=== PATIENT | male | born 1960 | race Hispanic/Latino ===

== ENCOUNTER 2017-06-01 12:02 | Emergency (ER) | payer SELFPAY ==
[2017-06-01 12:09] VITALS: BP 122/85; PULSE 89; RESP 18; TEMP 96.4; O2SAT 100
[2017-06-01] MEDS ORDERED: Lidocaine 1% 20 MG/2 ML PF AMP SC ONE (12:29)
[2017-06-01] MEDS ORDERED: Lidocaine 1% Inj (20ml) SC ONE (12:45)
[2017-06-01] MEDS ORDERED: Lidocaine 1% Inj (20ml) ONE (12:45)
--- NOTE | 2017-06-01 12:48 | ED PDOC ---
Upper Extremity Pain/Injury Time Seen by Provider: 06/01/17 12:05 Chief Complaint (Nursing): Upper Extremity Problem/Injury Chief Complaint (Provider): Right Hand Laceration History Per: Patient History/Exam Limitations: no limitations Onset/Duration Of Symptoms: Hrs (x1) Current Symptoms Are (Timing): Still Present Additional Complaint(s): Chace Mcfadden is a 57 year old male presenting to the ED for an evaluation for a laceration to his right hand occurring this morning at 11:15 AM. The patient states he cut his right hand with a piece of heavy glass. He denies pain or any other medical problems. Of note, the patient's tetanus is not up to date. PMD: None Provided Past Medical History Reviewed: Historical Data, Nursing Documentation, Vital Signs Vital Signs: Last Vital Signs Temp 96.4 F L 06/01/17 12:03 Pulse 89 06/01/17 12:03 Resp 18 06/01/17 12:03 BP 122/85 06/01/17 12:03 Pulse Ox 100 06/01/17 12:03 - Medical History PMH: No Chronic Diseases - Family History Family History: States: Unknown Family Hx - Social History Current smoker - smoking cessation education provided: No Ex-Smoker (has not smoked in the last 12 months): No Alcohol: None Drugs: Denies - Immunization History Hx Tetanus Toxoid Vaccination: No Hx Influenza Vaccination: No Hx Pneumococcal Vaccination: No - Allergies Allergies/Adverse Reactions: Allergies Allergy/AdvReac Type Severity Reaction Status Date / Time No Known Allergies Allergy Verified 06/01/17 12:03 Review of Systems ROS Statement: Except As Marked, All Systems Reviewed And Found Negative Musculoskeletal: Positive for: Hand Pain (right hand laceration; no right hand pain) Physical Exam - Reviewed Nursing Documentation Reviewed: Yes Vital Signs Reviewed: Yes - Physical Exam Appears: Positive for: Non-toxic, No Acute Distress Head Exam: Positive for: ATRAUMATIC, NORMOCEPHALIC Skin: Positive for: Normal Color, Warm, Dry Eye Exam: Positive for: Normal appearance Extremity: Positive for: Other (approximately 5.5 cm laceration extending from palmar aspect of right hand to hypothenar eminence; no active bleeding; no deep structural involvement appreciated) Neurologic/Psych: Positive for: Alert, Oriented (x3) - ECG O2 Sat by Pulse Oximetry: 100 (RA) Pulse Ox Interpretation: Normal Medical Decision Making Medical Decision Making: Time: 12:05 Impression: Right Hand Laceration Plan: * Adacel 0.5 ml IM * Lidocaine 1% (20 ml) SC * [RAD] Right Hand 3 Views * Suture repair * Reevaluation Right Hand Xray: FINDINGS: BONES: No acute fracture or suspicious lytic or blastic change identified. An old healed fracture of the 5th metacarpal bone is not excluded. A congenital deformity is appreciate the middle phalanx of the right small finger. JOINTS: Normal. No osteoarthritic changes. SOFT TISSUES: No definite retained radiodense foreign body identified. OTHER FINDINGS: None. IMPRESSION: No acute fracture dislocation identified. Old healed fracture of the 5th metacarpal bone is difficult to exclude. No definite retained radiodense foreign body identified. Patient advised to return to the ED or follow up with PMD/Urgent Care for suture removal in 10-12 days. Keep wound clean, dry, and covered. Scribe Attestation: Documented by Nicolle Auguste, acting as a scribe for Cortney Davis PA-C. Provider Scribe Attestation: All medical record entries made by the Scribe were at my direction and personally dictated by me. I have reviewed the chart and agree that the record accurately reflects my personal performance of the history, physical exam, medical decision making, and the department course for this patient. I have also personally directed, reviewed, and agree with the discharge instructions and disposition. Procedures - Laceration/Wound Repair Right Hand Wound Length (cm): 5.5 Irrigated w/ Saline (ccs): 250 Betadine Prep?: Yes Anesthesia: 1% Lidocaine Suture Size/Type: 4:0, proline Number of Sutures: 14 Wound Complexity: Simple (interrupted sutures applied to wound) Disposition - Clinical Impression Clinical Impression: Laceration - Patient ED Disposition Is Patient to be Admitted: No - Disposition [facility] Disposition: Routine/Home Disposition Time: 13:52 Condition: FAIR Additional Instructions: RETURN IN 10-12 DAYS TO ED/PMD/URGENT CARE FOR REMOVAL OF SUTURES. Instructions: Laceration (ED) Forms: [facility] (Togolese), [facility] ED School/Work Excuse
== END 2017-06-01 14:18 | disposition home or self-care (01) ==
LOC: H.ER 12:02
DX: S61.411A Laceration without foreign body of right hand, initial encounter (principal); W25.XXXA Contact with sharp glass, initial encounter; Y99.0 Civilian activity done for income or pay

== ENCOUNTER 2017-06-12 11:05 | Emergency (ER) | payer SELFPAY ==
[2017-06-12 11:27] VITALS: BP 124/83; PULSE 87; RESP 18; TEMP 98.4; O2SAT 97
[2017-06-12 11:29] VITALS: BMI 23.0
--- NOTE | 2017-06-12 12:03 | ED PDOC ---
HPI: Wound Care - HPI Time Seen by Provider: 06/12/17 11:22 Chief Complaint (Nursing): Suture/Staple Removal History Per: Patient Additional Complaint(s): Pt. had sutures placed on his L hand on 06/01/2017 and is now here for removal. Denies fever, pain, discharge. Past Medical History Reviewed: Historical Data, Nursing Documentation, Vital Signs Vital Signs: Last Vital Signs Temp 98.4 F 06/12/17 11:27 Pulse 87 06/12/17 11:27 Resp 18 06/12/17 11:27 BP 124/83 06/12/17 11:27 Pulse Ox 97 06/12/17 11:27 - Family History Family History: States: Unknown Family Hx - Immunization History Hx Tetanus Toxoid Vaccination: No Hx Influenza Vaccination: No Hx Pneumococcal Vaccination: No - Home Medications Home Medications: Ambulatory Orders Medication Instructions Recorded Cephalexin [cephalexin] 500 mg PO Q6 #28 cap 06/12/17 - Allergies Allergies/Adverse Reactions: Allergies Allergy/AdvReac Type Severity Reaction Status Date / Time No Known Allergies Allergy Verified 06/01/17 12:03 Review of Systems ROS Statement: Except As Marked, All Systems Reviewed And Found Negative Physical Exam - Physical Exam Appears: Positive for: Well, Non-toxic, No Acute Distress Extremity: Positive for: Other (L palmar hand with [address]; surrounding erythema noted but no discharge, swelling, or fluctuance; minimal dehisence noted to medial aspect of wound) - ECG O2 Sat by Pulse Oximetry: 97 - Progress ED Course And Treament: 8 sutures removed by PA without difficulty. Disposition - Clinical Impression Clinical Impression: Visit for suture removal, Cellulitis - Patient ED Disposition Is Patient to be Admitted: No - Disposition Disposition: Routine/Home Disposition Time: 12:03 Condition: STABLE Additional Instructions: Return to ED in 2-3 days for wound check or suture removal. Prescriptions: Cephalexin [cephalexin] 500 mg PO Q6 #28 cap Instructions: Cellulitis (ED) Print Language: SETSWANA
== END 2017-06-12 12:49 | disposition home or self-care (01) ==
LOC: H.ER 11:05
DX: Z48.02 Encounter for removal of sutures (principal)

== ENCOUNTER 2017-06-15 09:45 | Emergency (ER) | payer SELFPAY ==
[2017-06-15 09:59] VITALS: BP 127/85; PULSE 72; RESP 20; TEMP 98.1; O2SAT 98; BMI 22.3
--- NOTE | 2017-06-15 10:43 | ED PDOC ---
HPI: Wound Care - HPI Time Seen by Provider: 06/15/17 10:21 Chief Complaint (Nursing): Suture/Staple Removal Additional Complaint(s): 57y M in ED for suture removal-sutures placed to left palm (#14) on 06/01, #8 sutures removed on 06/12, remainder required more healing time. denies fever chills drainage.admits to wetting hand. Past Medical History Reviewed: Historical Data, Nursing Documentation, Vital Signs Vital Signs: Last Vital Signs Temp 98.1 F 06/15/17 09:57 Pulse 72 06/15/17 09:57 Resp 20 06/15/17 09:57 BP 127/85 06/15/17 09:57 Pulse Ox 98 06/15/17 09:57 - Medical History PMH: No Chronic Diseases - Family History Family History: States: Unknown Family Hx - Immunization History Hx Tetanus Toxoid Vaccination: No Hx Influenza Vaccination: No Hx Pneumococcal Vaccination: No - Home Medications Home Medications: Ambulatory Orders Medication Instructions Recorded Cephalexin [cephalexin] 500 mg PO Q6 #28 cap 06/12/17 - Allergies Allergies/Adverse Reactions: Allergies Allergy/AdvReac Type Severity Reaction Status Date / Time No Known Allergies Allergy Verified 06/15/17 10:12 Review of Systems ROS Statement: Except As Marked, All Systems Reviewed And Found Negative Musculoskeletal: Positive for: Hand Pain Physical Exam - Reviewed Nursing Documentation Reviewed: Yes Vital Signs Reviewed: Yes - Physical Exam Appears: Positive for: Well, Non-toxic, No Acute Distress Skin: Positive for: Normal Color, Warm, DRY Extremity: Positive for: Other (right hand:sutures noted-sutures require further time for proper healing-wound easily seperated when tugged. mild erythema noted no warmth no swelling. ) Neurologic/Psych: Positive for: Alert, Oriented - ECG O2 Sat by Pulse Oximetry: 98 Medical Decision Making Medical Decision Making: no sutures removed-will require at 3 days for removal and advised strongly to not wet wound and apply too much pressure. Disposition - Clinical Impression Clinical Impression: Visit for suture removal - Patient ED Disposition Is Patient to be Admitted: No Counseled Patient/Family Regarding: Diagnosis, Need For Followup - Disposition Disposition: Routine/Home Disposition Time: 10:49 Condition: STABLE Additional Instructions: Do not wet wound do not apply pressure to wound. Instructions: Chronic Wound Care (ED)
== END 2017-06-15 11:27 | disposition home or self-care (01) ==
LOC: H.ER 09:45
DX: Z48.02 Encounter for removal of sutures (principal)

== ENCOUNTER 2017-06-18 10:09 | Emergency (ER) | payer SELFPAY ==
[2017-06-18 10:09] VITALS: BMI 22.3
[2017-06-18 10:23] VITALS: O2SAT 98
--- NOTE | 2017-06-18 11:13 | ED PDOC ---
HPI: Wound Care - HPI Time Seen by Provider: 06/18/17 10:32 Chief Complaint (Nursing): Suture/Staple Removal History Per: Patient Additional Complaint(s): 57 yo male, presents to ED for suture removal from right hand. States he had it placed 2 weeks ago. Past Medical History Reviewed: Nursing Documentation, Vital Signs Vital Signs: Last Vital Signs Temp Pulse Resp BP Pulse Ox 98 06/18/17 10:22 - Medical History PMH: No Chronic Diseases - Surgical History Surgical History: No Surg Hx - Family History Family History: States: Unknown Family Hx - Living Arrangements Living Arrangements: With Family - Social History Current smoker - smoking cessation education provided: No Alcohol: None Drugs: Denies - Immunization History Hx Tetanus Toxoid Vaccination: No Hx Influenza Vaccination: No Hx Pneumococcal Vaccination: No - Home Medications Home Medications: Ambulatory Orders Medication Instructions Recorded Cephalexin [cephalexin] 500 mg PO Q6 #28 cap 06/12/17 - Allergies Allergies/Adverse Reactions: Allergies Allergy/AdvReac Type Severity Reaction Status Date / Time No Known Allergies Allergy Verified 06/15/17 10:12 Review of Systems ROS Statement: Except As Marked, All Systems Reviewed And Found Negative Skin: Positive for: Other (hand pain) Physical Exam - Reviewed Nursing Documentation Reviewed: Yes Vital Signs Reviewed: Yes - Physical Exam Appears: Positive for: Well, Non-toxic, No Acute Distress Head Exam: Positive for: ATRAUMATIC, NORMAL INSPECTION, NORMOCEPHALIC Skin: Positive for: Normal Color, Warm, DRY Eye Exam: Positive for: EOMI, Normal appearance, PERRL ENT: Positive for: Normal ENT Inspection Neck: Positive for: Normal, Painless ROM Cardiovascular/Chest: Positive for: Regular Rate, Rhythm Respiratory: Positive for: CNT, Normal Breath Sounds Gastrointestinal/Abdominal: Positive for: Normal Exam, Bowel Sounds, Soft Back: Positive for: Normal Inspection Extremity: Positive for: Normal ROM Neurologic/Psych: Positive for: Alert, Oriented Comments: Right hand, [address] no surrounding edema or erythema - ECG O2 Sat by Pulse Oximetry: 98 Medical Decision Making Medical Decision Making: sutures removed by specifications writer Disposition - Clinical Impression Clinical Impression: Removal of suture - Patient ED Disposition Is Patient to be Admitted: No - Disposition Disposition: Routine/Home Disposition Time: 10:00 Condition: STABLE Instructions: Stitches Removal (ED) Forms: [employer] (Indonesian)
== END 2017-06-18 11:28 | disposition home or self-care (01) ==
LOC: H.ER 10:09
DX: Z48.02 Encounter for removal of sutures (principal)